=== PATIENT | female | born 1970 | race Caucasian/White ===

== ENCOUNTER → 2021-04-05 | Outpatient (CLI) | payer OTHER | LOC: MAMO 11:00 | DX: Z12.31 Encounter for screening mammogram for malignant neoplasm of breast (principal) | CPT/HCPCS: 77063; 77067 ==

== ENCOUNTER → 2021-07-09 | Day surgery (SDC) | payer OTHER ==
[~2021-07-09] MED LIST: CRESTOR20 MG PO; LISINOPRIL20 MG PO; OMEPRAZOLE40 MG PO; PROVENTIL HFA6.7 GM INH; VITAMIN D3125 MCG PO
== END | disposition home or self-care (01) ==
LOC: OR 06:40
DX: Z12.11 Encounter for screening for malignant neoplasm of colon (principal); I10 Essential (primary) hypertension; E78.5 Hyperlipidemia, unspecified; K21.9 Gastro-esophageal reflux disease without esophagitis; F41.9 Anxiety disorder, unspecified; J45.909 Unspecified asthma, uncomplicated; F32.A Depression, unspecified; E78.00 Pure hypercholesterolemia, unspecified; Z86.010 Personal history of colon polyps; Z79.899 Other long term (current) drug therapy; Z98.51 Tubal ligation status; Z72.89 Other problems related to lifestyle
CPT/HCPCS: 93005; J2704; J3010; J7120